=== PATIENT | female | born 1945 | race Caucasian/White ===

== ENCOUNTER 2016-11-21 14:39 | Emergency (ER) | payer OTHER ==
--- NOTE | 2016-11-21 14:55 | PDOC ---
History of Present Illness <Jarrod Menon - Last Filed: 11/21/16 17:19> - General History Source: Patient Exam Limitations: No Limitations - History of Present Illness Initial Comments: 11/21/16 17:23 The patient is a 69 year old female presenting with her daughter, with a significant past medical history of broken ribs from a fall (3 years ago), who presents to the emergency department with left sided rib pain since yesterday. She states that she called her PMD who advised her to come to the ED for evaluation. She describes her pain as a sharp sensation, without radiation. She notes that the pain is exacerbated when she takes a deep breath, so she is breathing shallower in order to subside the pain, as well as when she moves in a certain direction. She also notes that she has been taking Ibuprofen since yesterday, which relieves the pain until the medication wears off. She states that this pain resembles the pain she had when she previously broke her ribs. She denies any recent fall or trauma. She reports that 2-3 years ago she fell on ice and broke the majority of her ribs. No worsening of pain on exertion. The patient denies chest pain, shortness of breath, headache and dizziness. Denies fever, chills, nausea, vomit, diaphoreis, diarrhea and constipation. Denies dysuria, frequency, urgency and hematuria. Allergies: None Past surgical history: None reported Social history: No alcohol, tobacco or drug use reported. PMD - Dr. Tony Merritt <Rex Walter - Last Filed: 11/21/16 17:24> - General Chief Complaint: Chest Pain Stated Complaint: CHEST PAIN/LEFT RIBS Time Seen by Provider: 11/21/16 14:51 Past History - Past Medical History Other medical history: 8 BROKEN RIBS - Psycho/Social/Smoking Cessation Hx Anxiety: No Suicidal Ideation: No Smoking History: Never smoked Have you smoked in the past 12 months: No Information on smoking cessation initiated: No Hx Alcohol Use: No Drug/Substance Use Hx: No Substance Use Type: None <Jarrod Menon - Last Filed: 11/21/16 17:19> <Rex Walter - Last Filed: 11/21/16 17:24> - Past Medical History Allergies/Adverse Reactions: Allergies Allergy/AdvReac Type Severity Reaction Status Date / Time No Known Allergies Allergy Verified 11/21/16 14:41 Home Medications: Ambulatory Orders NK [No Known Home Medication] 11/21/16 Review of Systems - Review of Systems Able to Perform ROS?: Yes Comments:: 11/21/16 17:23 CONSTITUTIONAL: No reported: Fever, Chills, Diaphoresis, Generalized Weakness, Malaise, Loss of Appetite HEENT: No reported: Rhinorrhea, Nasal Congestion, Throat Pain, Throat Swelling, Difficulty Swallowing, Mouth Swelling, Ear Pain, Eye Pain, Visual Changes CARDIOVASCULAR: No reported: Chest Pain, Syncope, Palpitations, Irregular Heart Rate, Lightheadedness, Peripheral Edema RESPIRATORY: No reported: Cough, Shortness of Breath, SOB with Exertion, Orthopnea, Wheezing , Stridor, Hemoptysis GASTROINTESTINAL: No reported: Abdominal pain, Abdominal Distension, Nausea, Vomiting, Diarrhea, Constipation, Melena, Hematochezia GENITOURINARY: No reported: Dysuria, Frequency, Urgency, Hesitancy, Flank Pain, Genital Pain MUSCULOSKELETAL: Reported: Left sided rib pain. No reported: Myalgia, Arthralgia, Joint Swelling, Back pain, Neck Pain SKIN: No reported: Rash, Itching, Pallor HEMEATOLOGIC/IMMUNOLOGIC: No reported: Easy Bleeding, Easy Bruising, Lymphadenopathy, Frequent infections ENDOCRINE: No reported: Unexplained Weight Gain, Unexplained Weight Loss, Heat Intolerance , Cold Intolerance NEUROLOGIC: No reported: Headache, Focal Weakness, Paresthesias, Vertigo, Lightheadedness, Unsteady Gait, Seizure, Mental Status Changes, Incontinence PSYCHIATRIC: No reported: Anxiety, Depression <Rex Walter - Last Filed: 11/21/16 17:24> *Physical Exam - Vital Signs Last Vital Signs Temp Pulse Resp BP Pulse Ox 98.8 F 81 16 162/105 96 11/21/16 14:40 11/21/16 14:40 11/21/16 14:40 11/21/16 14:40 11/21/16 14:40 <Jarrod Menon - Last Filed: 11/21/16 17:19> - Vital Signs Last Vital Signs Temp Pulse Resp BP Pulse Ox 98.8 F 82 16 152/90 97 11/21/16 14:40 11/21/16 16:34 11/21/16 14:40 11/21/16 16:34 11/21/16 16:34 - Physical Exam Comments: 11/21/16 17:23 GENERAL: The patient is awake, alert, and fully oriented, Nontoxic - in no acute distress. HEAD: Normocephalic, atraumatic. EYES: extraocular movements intact, sclera anicteric, conjunctiva clear. ENT: Normal voice, Moist mucous membranes. NECK: Normal range of motion, supple LUNGS: Breath sounds equal, clear to auscultation bilaterally. No wheezes, no rhonchi, no rales. HEART: Regular rate and rhythm, without murmur, rub or gallop. ABDOMEN: Soft, nontender, normoactive bowel sounds. No guarding, no rebound.No CVA tenderness EXTREMITIES: Normal range of motion, no edema. No clubbing or cyanosis. No cords, erythema, or tenderness. MUSCULOSKELTAL: (+) Mild point tendernes at the left 6th rib. No rash noted in the area. NEUROLOGICAL: No facial assymetry, Normal speech, PSYCH: Normal mood, normal affect. SKIN: Warm, Dry, normal turgor <Rex Walter - Last Filed: 11/21/16 17:24> Heart Score/ECG Review - ECG Impressions Comment:: 11/21/16 17:19 Twelve-lead EKG was performed and reviewed by me. There is normal sinus rhythm with a normal rate. Rate of 73 The axis is normal. The intervals are normal. There is normal R wave progression There are no ST or T wave abnormalities. Impression: Normal twelve-lead EKG <Jarrod Menon - Last Filed: 11/21/16 17:19> ED Treatment Course - LABORATORY CBC & Chemistry Diagram: 11/21/16 15:50 11/21/16 15:50 <Jarrod Menon - Last Filed: 11/21/16 17:19> - LABORATORY CBC & Chemistry Diagram: 11/21/16 15:50 11/21/16 15:50 - ADDITIONAL ORDERS Additional order review: Laboratory Results 11/21/16 11/21/16 15:50 15:50 Sodium 138 Potassium 4.3 Chloride 103 Carbon Dioxide 27 Anion Gap 8 BUN 19 H Creatinine 0.7 Creat Clearance w eGFR > 60 Random Glucose 100 Calcium 9.8 Total Bilirubin 0.6 AST 21 ALT 18 Alkaline Phosphatase 57 Creatine Kinase 50 Troponin I < 0.03 L Total Protein 6.9 Albumin 4.4 11/21/16 15:50 RBC 4.99 MCV 85.4 MCHC 33.7 RDW 12.6 MPV 7.4 L Neutrophils % 74.0 Lymphocytes % 15.5 Monocytes % 7.6 Eosinophils % 2.7 Basophils % 0.2 <Rex Walter - Last Filed: 11/21/16 17:24> Medical Decision Making - Medical Decision Making 11/21/16 15:23 69y F no pmhx presents with L chest pain. The pt has history of multiple rib fractures from a fall 3.5 years ago, but has been asymptomatic, the pt states the pain is similar to her fractuer int he past - states it is worse with taking a deep breaths and worse with moveemnt. pt denies any sob, n/v, diaphoresis, cough/hemoptysis, le edema. no ercent trauma or heavy lifting. symptoms reliably improved with motrin likely msk cause, but no trigger event will screen for acs with trop x 1 (last episode of pain was 3am) will obtain screening ekg will obtain cxr/l rib series 11/21/16 17:19 The patient's lab work was negative, troponin negative 1, EKG unremarkable. xray show now acute fractures, but old fx identified, and seem to correlate with location of her tendenress will dc the pt with pmd fu pt feelsasymptomatic currently return precautions were discussed I discussed the physical exam findings, ancillary test results and final diagnoses with the patient. I answered all of the patient's questions. The patient was satisfied with the care received and felt comfortable with the discharge plan and treatment plan. The patient will call their primary care physician within 24 hours to arrange follow-up and will return to the Emergency Department with any new, persistent or worsening symptoms. <Jarrod Menon - Last Filed: 11/21/16 17:19> *DC/Admit/Observation/Transfer - Discharge Dispostion Admit: No <Jarrod Menon - Last Filed: 11/21/16 17:19> - Attestations Scribe Attestion: 11/21/16 17:24 Documentation prepared by Rex Walter, acting as bilingual medical receptionist for Jarrod Menon MD <Rex Walter - Last Filed: 11/21/16 17:24> Diagnosis at time of Disposition: Muscular chest pain - Referrals Referrals: Selvin Merritt MD [Staff Physician] - - Patient Instructions Printed Discharge Instructions: DI for Atypical Chest Pain Additional Instructions: Return to the emergency department immediately with ANY new, persistent or worsening symptoms. Take ibuprofen or Tylenol as needed for your pain. Ice to the area for comfort You MUST call and follow up with your doctor tomorrow for further evaluation of your symptoms. Results were discussed with you. Please make sure your doctor reviews the results of your emergency evaluation. Print Language: MOHAWK
[2016-11-21 15:10] VITALS: TEMP 98.8; BMI 24.6
[2016-11-21 16:34] VITALS: BP 152/90; PULSE 82
[2016-11-21 16:36] LABS: BASOPHIL 0.2 % (0-2.0); EOSINOPHIL 2.7 % (0-4.5); MCH 28.8 pg (25.7-33.7); MCHC 33.7 g/dl (32.0-36.0); MEAN CELL VOLUME 85.4 fl (80-96); MEAN PLT VOLUME 7.4 fl (7.5-11.1); PLATELET COUNT 260 K/MM3 (134-434); RDW 12.6 % (11.6-15.6); WHITE BLOOD COUNT 7.8 K/mm3 (4.0-10.8)
[2016-11-21 16:48] LABS: ALBUMIN 4.4 g/dl (3.5-5.0); ALK PHOS 57 U/L (32-92); ANION GAP 8 (8-16); BILIRUBIN,TOTAL 0.6 mg/dl (0.2-1.0); CALCIUM 9.8 mg/dl (8.4-10.2); CO2 27 mmol/L (22-28); CREATININE 0.7 mg/dl (0.6-1.3); GLUCOSE,RANDOM 100 mg/dl (74-106); SGOT/AST 21 U/L (10-42); SGPT/ALT 18 U/L (10-40); TOT PROT 6.9 g/dl (6.4-8.3)
[2016-11-21 16:49] LABS: CPK(DFH) 50 IU/L (26-140)
[2016-11-21 17:16] LABS: TROPONIN I (DFP) < 0.03 ng/ml (0.03-0.50)
--- NOTE | 2016-11-22 17:16 | EKG ---
Test Reason : Blood Pressure : / mmHG Vent. Rate : 073 BPM Atrial Rate : 073 BPM P-R Int : 160 ms QRS Dur : 088 ms QT Int : 398 ms P-R-T Axes : 023 002 010 degrees QTc Int : 438 ms NORMAL SINUS RHYTHM NORMAL ECG NO PREVIOUS ECGS AVAILABLE Confirmed by PEBBLES KHAN MD ([id number]) on 11/22/2016 5:16:16 PM Referred By: KATHERINE Confirmed By:PEBBLES KHAN MD
== END 2016-11-21 17:30 | disposition home or self-care (01) ==
LOC: EDBD 14:39 → FER 14:39
DX: M79.1 Myalgia (principal)
CPT/HCPCS: 36415; 71020-TC; 71101-TC; 80053; 82550; 84484; 85025; 93005; 99283-25